=== PATIENT | male | born 1965 | race Caucasian/White ===

== ENCOUNTER 2019-08-04 23:41 | Emergency (ER) | payer OTHER ==
[2019-08-05 03:01] LABS: ABSOLUTE LYMPHOCYTES (AUTO) 1.9 10^3/uL (0.5-4.7); ABSOLUTE MONOCYTES (AUTO) 0.6 10^3/uL (0.1-1.4); ABSOLUTE NEUT (AUTO) 4.6 10^3/uL (1.7-8.2); BASOPHILS % (AUTO) 0.4 % (0-2); EOSINOPHILS % (AUTO) 0.6 % (0-6); HEMATOCRIT 41.1 % (37.9-51.0); HEMOGLOBIN 14.8 g/dL (13.5-17.0); LYMPHOCYTES % (AUTO) 26.9 % (13-45); MEAN CORPUSCULAR HEMOGLOBIN 32.2 pg (27.0-33.4); MEAN CORPUSCULAR HGB CONC 35.9 g/dL (32.0-36.0); MEAN CORPUSCULAR VOLUME 90 fl (80-97); MONOCYTES % (AUTO) 7.8 % (3-13); PLATELET COUNT 208 10^3/uL (150-450); RED BLOOD COUNT 4.59 10^6/uL (4.35-5.55); RED CELL DISTRIBUTION WIDTH 13.1 % (11.5-14.0); SEGMENTED NEUTROPHILS % (AUTO) 64.3 % (42-78); TOTAL CELLS COUNTED % (AUTO) 100 %; WHITE BLOOD COUNT 7.1 10^3/uL (4.0-10.5)
[2019-08-05 03:17] LABS: ALBUMIN 4.4 g/dL (3.5-5.0); ALKALINE PHOSPHATASE 95 U/L (38-126); ANION GAP 10 (5-19); ASPARTATE AMINO TRANSFERASE 31 U/L (17-59); BILIRUBIN,DIRECT 0.2 mg/dL (0.0-0.4); BILIRUBIN,TOTAL 0.6 mg/dL (0.2-1.3); BLOOD UREA NITROGEN 14 mg/dL (7-20); CALCIUM 9.6 mg/dL (8.4-10.2); CARBON DIOXIDE 28 mmol/L (22-30); CHLORIDE 103 mmol/L (98-107); CREATINE KINASE 129 U/L (55-170); GLUCOSE 98 mg/dL (75-110); POTASSIUM 4.6 mmol/L (3.6-5.0); TOTAL PROTEIN 7.3 g/dL (6.3-8.2)
[2019-08-05 03:27] LABS: CREATINE KINASE MB 1.26 ng/mL (<4.55)
[2019-08-05 03:28] LABS: TROPONIN I < 0.012 ng/mL
[2019-08-05] MEDS ORDERED: MAG HYDROX/AL HYDROX/SIMETH SUSP 30 ML UDCUP PO ONE ×2 (06:46→08:57)
[2019-08-05] MEDS ORDERED: LIDOCAINE 2% VISCOUS SOLN 15 ML UDCUP PO ONE ×2 (06:46→08:57)
--- NOTE | 2019-08-05 07:48 | ER Document Report ---
Entered by ADWOA SANTILLAN SCRIBE 08/05/19 0652 Acting as scribe for:WILMAN NGUYEN MD ED General - General Chief Complaint: Chest Pressure Stated Complaint: CHEST PAIN/BLOOD PRESSURE ISSUE Time Seen by Provider: 08/05/19 06:34 Mode of Arrival: Ambulatory Information source: Patient Notes: This 54 year old male patient presents to the emergency department today with complaints of chest pain with associated burping, stating he feels very "gassy". Patient reports that his chest pain is sometimes relieved when he burps. Patient also reports having blood pressures that were "abnormally high" the last two days, stating that yesterday prior to going to work he had a pressure of 134/84 and last night he had a pressure of 194/101 although he reports his pressures all generally always 90s/60s but then goes on to state that he never checks his pressures normally. Patient follows with community services officer Dr. Murray and he scheduled an appointment with him on 08/09/19. TRAVEL OUTSIDE OF THE [place] IN LAST 30 DAYS: No - Related Data Allergies/Adverse Reactions: tramadol [From [facility]] Allergy (Verified 08/05/19 01:08) Home Medications: Rosuvastatin. levothyroxine Past Medical History - General Information source: Patient - Social History Smoking Status: Former Smoker - quit 5 years ago Cigarette use (# per day): No Chew tobacco use (# tins/day): No Frequency of alcohol use: None Drug Abuse: None Lives with: Family Family History: Hypertension Patient has suicidal ideation: No Patient has homicidal ideation: No - Past Medical History Cardiac Medical History: Reports: Hx Hypercholesterolemia Endocrine Medical History: Reports: Hx Hypothyroidism Past Surgical History: Reports: Other - Left traumatic retinal detachment repair Review of Systems - Review of Systems Constitutional: No symptoms reported EENT: No symptoms reported Cardiovascular: See HPI, Chest pain Respiratory: No symptoms reported Gastrointestinal: See HPI, Other - reflux, burping Genitourinary: No symptoms reported Male Genitourinary: No symptoms reported Musculoskeletal: No symptoms reported Skin: No symptoms reported Hematologic/Lymphatic: No symptoms reported Neurological/Psychological: No symptoms reported -: Yes All other systems reviewed and negative Physical Exam - Vital signs Vitals: Temp Pulse BP Pulse Ox 98.1 F 60 156/80 H 98 08/05/19 00:55 08/05/19 00:55 08/05/19 00:55 08/05/19 00:55 - Notes Notes: Physical Exam: General: Alert, appears well. HEENT: Normocephalic. Atraumatic. PERRL. Extraocular movements intact. Oropharynx clear. Neck: Supple. Non-tender. Respiratory: No respiratory distress. Clear and equal breath sounds bilaterally. Cardiovascular: Regular rate and rhythm. Abdominal: Epigastric and right upper quadrant tenderness with palpation. No distension. Normal Bowel Sounds. Back: No gross abnormalities. Extremities: Moves all four extremities. Upper extremities: Normal inspection. Normal ROM. Lower extremities: Normal inspection. No edema. Normal ROM. Neurological: Normal cognition. AAOx4. Normal speech. Psychological: Normal affect. Normal Mood. Skin: Warm. Dry. Normal color. Course - Re-evaluation Re-evalutation: 08/05/19 08:55 At this time patient states the GI cocktail did make his abdomen feel little better, but is starting come back. He is also stating that he feels funny, weak in the right arm, but overall states he is cannot describe exactly what it is he is feeling as he is rubbing his anterior chest wall. His blood pressure does remain elevated at 161/93. - Vital Signs Vital signs: Temp Pulse Resp BP Pulse Ox 98.3 F 63 15 153/91 H 100 08/05/19 03:43 08/05/19 08:15 08/05/19 08:15 08/05/19 08:15 08/05/19 08:15 - Laboratory Result Diagrams: 08/05/19 02:46 08/05/19 02:46 - Diagnostic Test Radiology reviewed: Image reviewed, Reports reviewed - Gallbladder ultrasound is unremarkable. - EKG Interpretation by Me EKG shows normal: Sinus rhythm, [place], Intervals, QRS Complexes, ST-T Waves Rate: Normal - 72 Rhythm: NSR - Consults Dr. Murray Time consulted: 09:00 Consulted provider: follow-up in office - Dr. Murray requests I give the patient Norvasc 10 mg PO and send him to the office now for further evaluation. Discharge - Discharge Clinical Impression: Epigastric abdominal pain, Elevated blood pressure reading Chest pain Qualifiers: Chest pain type: unspecified Qualified Code(s): R07.9 - Chest pain, unspecified Condition: Stable Disposition: HOME, SELF-CARE Additional Instructions: Go to see Dr. Murray in his office now for further evaluation. His address is [address] [place] [address]. He is [place] to the [facility]. RETURN TO THE EMERGENCY ROOM IF ANY NEW OR WORSENING SYMPTOMS. Referrals: MARYJANE MURRAY MD [ACTIVE STAFF] - 08/05/19 Scribe Attestation: 08/05/19 09:05 I personally performed the services described in the documentation, reviewed and edited the documentation which was dictated to the scribe in my presence, and it accurately records my words and actions. I personally performed the services described in the documentation, reviewed and edited the documentation which was dictated to the scribe in my presence, and it accurately records my words and actions.
--- NOTE | 2019-08-05 08:38 | RADIOLOGY REPORT (SQ) ---
EXAM DESCRIPTION: U/S ABDOMEN LIMITED W/O DOP COMPLETED DATE/TIME: 08/05/2019 7:54 am REASON FOR STUDY: RUQ abd pain, belching COMPARISON: None. TECHNIQUE: Dynamic and static grayscale images acquired of the abdomen and recorded on PACS. Additio nal selected color Doppler and spectral images recorded. LIMITATIONS: None. FINDINGS: PANCREAS: The visualized portions of the pancreas appear normal. LIVER: Normal contour and echotexture. LIVER VASCULATURE: Hepatopetal flow within the portal veins. GALLBLADDER: The gallbladder wall measures 1.5 mm in thickness. There is no cholelithiasis, sludge o r pericholecystic fluid. ULTRASOUND-DETECTED GARCIA'S SIGN: Negative. INTRAHEPATIC DUCTS AND COMMON DUCT: The common bile duct measures 2.8 mm in diameter. The intrahepat ic bile ducts are normal in caliber. AORTA: No aneurysm. RIGHT KIDNEY: The right kidney measures 9.1 cm in length. There is no hydronephrosis. The round an echoic structure with posterior acoustic enhancement in the superior pole of the kidney that measures 2.2 x 2 x 2.6 cm is consistent with a simple cyst. PERITONEAL AND RIGHT PLEURAL SPACE: No ascites or effusions. OTHER: No other findings. IMPRESSION: No abnormality of the right upper quadrant. TECHNICAL DOCUMENTATION: JOB ID: [id number] [employer]- All Rights Reserved Reading location - IP/workstation name: [email or web address]
[2019-08-05] MEDS ORDERED: AMLODIPINE BESYLATE 10 MG TABLET PO ONE (09:06)
[2019-08-05 09:35] VITALS: BP 146/84
--- NOTE | 2019-08-05 13:05 | EKG REPORT ---
SEVERITY:- NORMAL ECG - SINUS RHYTHM : Confirmed by: Kenna Lema 05-Aug-2019 13:04:36
== END 2019-08-05 09:33 | disposition home or self-care (01) ==
LOC: ER 23:41
DX: R07.9 Chest pain, unspecified (principal); R10.13 Epigastric pain; R03.0 Elevated blood-pressure reading, without diagnosis of hypertension
CPT/HCPCS: 93005; 99285; 36415; 82553; 82550; 83690; 85025; 80053; 84484; 76705; 93010; J3490